=== PATIENT | male | born 1985 | race African-American/Black ===

== ENCOUNTER 2020-09-20 20:46 | Emergency (ER) | payer OTHER ==
[~2020-09-20] VITALS: Ht 165.1 cm; Wt 52.2 kg
[2020-09-20 21:01] VITALS: BP 138/95
[2020-09-20] MEDS ORDERED: AMOXICILLIN500 MG ORAL (21:14)
[2020-09-20] MEDS ORDERED: ACETAMINOPHEN-1 EAC1 ORAL (21:14)
--- NOTE | 2020-09-23 08:40 | Emergency Room Report ---
History of Present Illness General Chief Complaint: Toothache Source: Patient Present Illness HPI 35-year-old male presents to ED with tooth pain. Started in lower jaw a few days ago. Dull, 7 out of 10, nonradiating. Denies fevers or chills. Denies neck stiffness. No other aggravating relieving factors. 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 COVID-19 Screening: Negative COVID-19 COVID-19 Testing Source: [facility] Patient History Past Medical History: none Past Surgical History: none Pertinent Family History: none Social History: Denies: smoking, alcohol use, drug use Immunizations: UTD Reviewed Nursing Documentation: PMH: Agreed; PSxH: Agreed Nursing Documentation-PMH Past Medical History: No Stated History Review of Systems All Other Systems: negative except mentioned in HPI Physical Exam Vital Signs Date Time Temp Pulse Resp B/P (MAP) Pulse Ox O2 Delivery O2 Flow Rate FiO2 09/20/20 20:47 98.1 90 15 138/95 (109) 99 Room Air Sp02 EP Interpretation: reviewed, normal General Appearance: no apparent distress, alert, GCS 15, non-toxic Head: normocephalic, atraumatic Eyes: bilateral eye normal inspection, bilateral eye PERRL ENT: hearing grossly normal, normal pharynx, no angioedema, normal voice, other - TTP tooth left lower jaw. surrounding erythema/induration Neck: full range of motion, supple/symm/no masses Respiratory: chest non-tender, lungs clear, normal breath sounds, speaking full sentences Cardiovascular #1: regular rate, rhythm, no edema Cardiovascular #2: 2+ carotid (R), 2+ carotid (L), 2+ radial (R), 2+ radial (L), 2+ dorsalis pedis (R), 2+ dorsalis pedis (L) Gastrointestinal: normal bowel sounds, non tender, soft, non-distended, no guarding, no rebound Rectal: deferred Genitourinary: normal inspection, no CVA tenderness Musculoskeletal: back normal, normal range of motion, gait/station normal, non- tender Neurologic: alert, motor strength/tone normal, oriented x3, sensory intact, responsive, speech normal Psychiatric: judgement/insight normal, memory normal, mood/affect normal, no suicidal/homicidal ideation Reflexes: 3+ bicep (R), 3+ bicep (L), 3+ tricep (R), 3+ tricep (L), 3+ knee (R), 3+ knee (L) Skin: no rash Lymphatic: no adenopathy Medical Decision Making Diagnostic Impression: Primary Impression: Toothache ER Course 35 yo M presents to ED c/o L lower jaw tooth pain Cracked tooth, dental abscess, cavity Patient placed on stretcher. After initial history, physical exam reveals a young male in no distress. There is erythema surrounding the tooth in the left lower jaw. No fluctuance or discharge Discussed findings with patient. Given amoxicillin ED. Will provide referrals to dentist. Safe for discharge close outpatient follow-up Diagnosis- toothache Stable and discharged to home prescription for Tylenol #3 and amoxicillin. Instructed to see dentist as a walk-in this week. Return to ED if symptoms recur or worse Last Vital Signs Date Time Temp Pulse Resp B/P (MAP) Pulse Ox O2 Delivery O2 Flow Rate FiO2 09/20/20 21:23 98.1 15 138/95 99 Room Air 09/20/20 20:47 90 Status: improved Disposition: HOME, SELF-CARE Condition: Stable Scripts Amoxicillin* (AMOXIL*) 500 Mg Capsule 500 MG ORAL THREE TIMES A DAY, #21 CAP Prov: Thai Lozano MD 09/20/20 Acetaminophen With Codeine (T#3) (TYLENOL #3 TAB*) Y Tab 1 TAB ORAL Q8H PRN for For Pain, #12 TAB Prov: Thai Lozano MD 09/20/20 Referrals: Alberto CURRY,REFERRING (PCP) [facility](age 2-12) - Orthodontic Clinic - Hours: Mon,Wed,, 8:15am and 1pm (new patient screening), Tu. 1pm. Emergency clinic Wednesday - Wednesday 8:30am and 1pm, Tu. 1pm. *Call to check if clinic is open; No appointment necessary for the first visit (new patient screening), Arrive 15-30 minutes early as it is first come, first serve. Patient Instructions: Dental Pain Thai Lozano MD Sep 23, 2020 08:40
== END 2020-09-20 21:25 | disposition home or self-care (01) ==
LOC: EMR 21:19
DX: K08.89 Other specified disorders of teeth and supporting structures (principal)
CPT/HCPCS: 99282